=== PATIENT | male | born 1985 | race Hispanic/Latino ===

== ENCOUNTER 2021-04-06 08:00 | Emergency (ER) | payer OTHER ==
[2021-04-06 08:45] LABS: Urine Blood Trace-lysed (Negative); Urine Glucose Negative (Negative); Urine Protein Negative (Negative)
[2021-04-06 08:48] LABS: Absolute Lymphocytes (CBC) 2.4 K/uL (0.7-4.9); Hematocrit 45.2 % (39.6-49.0); Lymphocytes % 30.9 % (15.3-44.8); MPV 8.5 fL (7.6-11.3); RBC Red Blood Cell Count 5.12 M/uL (4.33-5.43)
[2021-04-06 08:49] LABS: Protime INR 1.08
[2021-04-06 09:14] LABS: ALT/SGPT 31 U/L (12-78); AST/SGOT 15 U/L (15-37); Albumin 3.7 g/dL (3.4-5.0); Alkaline Phosphatase 54 U/L (45-117); BUN Blood Urea Nitrogen 18 mg/dL (7-18); Bicarbonate 28 mmol/L (21-32); Bilirubin Direct < 0.1 mg/dL (0-0.2); Bilirubin Total 0.3 mg/dL (0.2-1.0); Glucose Level 127 mg/dL (74-106); Magnesium 1.9 mg/dL (1.8-2.4); NT PRO-BNP 17 pg/mL (<125); Potassium 3.6 mmol/L (3.5-5.1); Protein, Total 8.1 g/dL (6.4-8.2); Sodium Level 134 mmol/L (136-145); Thyroid Stimulating Hormone 0.836 uIU/mL (0.360-3.740)
[2021-04-06 09:26] LABS: Barbiturates NEGATIVE (NEGATIVE); Benzodiazepines NEGATIVE (NEGATIVE); Cocaine NEGATIVE (NEGATIVE); METHAMPHETAM NEGATIVE (NEGATIVE); Methadone NEGATIVE (NEGATIVE); Opiates NEGATIVE (NEGATIVE); Phencyclidine NEGATIVE (NEGATIVE); THC Cannibis POSITIVE (NEGATIVE)
--- NOTE | 2021-04-06 09:45 | RAD REPORT ---
EXAM DESCRIPTION: RAD - Chest Single View - 04/06/2021 9:30 am CLINICAL HISTORY: PALPITATIONS COMPARISON: No comparisons FINDINGS: Lines: None. Lungs: No evidence of edema or pneumonia. Pleural: No significant pleural effusions or pneumothorax. Cardiac: The heart size is within normal limits. Bones: No acute fractures. Other: IMPRESSION: No acute cardiopulmonary disease.
[2021-04-06] MEDS ORDERED: METOPROLOL TARTRATE 5 MG/5 ML INJ IV ONE (09:48)
--- NOTE | 2021-04-06 10:34 | ER ---
Nurse's Notes [facility] Name: Denny Heller Age: 36 yrs Sex: Male : 1985 Arrival Date: 04/06/2021 Time: 08:03 Bed 12 Private MD: Diagnosis: Palpitations;Dizziness and giddiness Presentation: 04/06 08:12 Chief complaint: Patient states: "around 0530 this morning I started having a fast jd3 heart rate.". Coronavirus screen: At this time, the client does not indicate any symptoms associated with coronavirus-19. Ebola Screen: Patient negative for fever greater than or equal to 101.5 degrees Fahrenheit, and additional compatible Ebola Virus Disease symptoms. Initial Sepsis Screen: Does the patient meet any 2 criteria? No. Patient's initial sepsis screen is negative. Does the patient have a suspected source of infection? No. Patient's initial sepsis screen is negative. Risk Assessment: Do you want to hurt yourself or someone else? Patient reports no desire to harm self or others. Onset of symptoms was April 06, 2021. 08:12 Method Of Arrival: Ambulatory jd3 08:12 Acuity: VIRGEN 3 jd3 Triage Assessment: 09:44 General: Appears in no apparent distress. comfortable, obese, well groomed, well jh5 developed, well nourished, Behavior is calm, cooperative, appropriate for age. Pain: Denies pain. Cardiovascular: Rhythm is irregular. Historical: - Allergies: 08:13 No Known Allergies; jd3 - Home Meds: 08:13 None [Active]; jd3 - PMHx: 08:13 None; jd3 - PSHx: 08:13 None; jd3 - Immunization history:: Adult Immunizations up to date, Client reports receiving the 2nd dose of the Covid vaccine, Flu vaccine is not up to date. - Social history:: Smoking status: Patient denies any tobacco usage or history of. Screenin:09 Abuse screen: Denies threats or abuse. Denies injuries from another. Nutritional 5 screening: No deficits noted. Tuberculosis screening: No symptoms or risk factors identified. Fall Risk Secondary diagnosis (15 points) dizziness. Assessment: 10:11 Pain: Pain does not radiate. Pain began gradually. 5 Vital Signs: 08:14 BP 150 / 100; Pulse 114; Resp 18 S; Temp 98.3(TE); Pulse Ox 100% on R/A; Weight 115.67 jd3 kg (R); Height 5 ft. 8 in. (172.72 cm) (R); Pain 0/10; 09:43 BP 144 / 75; Pulse 93; Resp 18; Pulse Ox 100% ; jh5 09:58 BP 124 / 73; Pulse 84; Resp 18; Pulse Ox 100% ; jh5 10:07 BP 122 / 65; Pulse 78; jh5 08:14 Body Mass Index 38.77 (115.67 kg, 172.72 cm) jd3 ED Course: 08:03 Patient arrived in ED. ds1 08:13 Triage completed. jd3 08:14 Arm band placed on. EKG completed in triage. Results shown to MD. jd3 08:23 Jonathan Valdez MD is Attending Physician. kdr 08:45 Sujey Chi RN is Primary Nurse. iw 08:47 Patient has correct armband on for positive identification. Bed in low position. Call [facility] light in reach. Side rails up X 1. Adult w/ patient. Warm blanket given. hall monitor on. Pulse ox on. NIBP on. 08:47 Initial lab(s) drawn, by sd, sent to lab. Urine collected: clean catch specimen, clear, [facility] EKG done, by ED staff, reviewed by Jonathan Valdez MD. Inserted saline lock: 18 gauge in right antecubital area, using aseptic technique. Blood collected. 08:48 TSH Sent. mh5 08:48 UDS Sent. mh5 08:48 ETOH Level Sent. mh5 08:48 Basic Metabolic Panel Sent. mh5 08:48 CBC with Diff Sent. mh5 08:48 LFT's Sent. mh5 08:48 Magnesium Sent. mh5 08:48 NT PRO-BNP Sent. mh5 08:48 PT-INR Sent. mh5 08:48 Troponin HS Sent. 5 09:09 No provider procedures requiring assistance completed. jh5 09:30 XRAY Chest (1 view) In Process Unspecified. EDMS 09:44 Patient maintains SpO2 saturation greater than 95% on room air. 5 Administered Medications: 09:51 Drug: Lopressor (metoprolol) 5 mg {Note: 2.5mg given as first dose per José Miguel.} Route: jh5 IVP; Site: right antecubital; 09:59 Drug: Lopressor (metoprolol) 5 mg {Note: 2.5 given IVP .} Route: IVP; Site: right [facility] antecubital; Outcome: 10:34 Discharge ordered by . kdr 11:17 Patient left the ED. 5 Signatures: Dispatcher [employer] EDMS Jonathan Valdez MD MD kdr Sanford, Demi ds1 Sujey Chi RN RN iw Martinez, Maria Jasvir Carney RN RN jd3 Rees, Jessica, RN RN jh5 Corrections: (The following items were deleted from the chart) 08:14 08:13 PSHx: None; gilbert hunt
--- NOTE | 2021-04-06 10:35 | EDPHYS ---
Physician Documentation [facility] Name: Denny Heller Age: 36 yrs Sex: Male : 1985 Arrival Date: 04/06/2021 Time: 08:03 Bed 12 Private MD: ED Physician Jonathan Valdez HPI: 04/06 13:09 This 36 yrs old Male presents to ER via Ambulatory with complaints of kdr Irregular Pulse, Dizziness. 13:09 The patient presents with dizziness, generalized weakness, lightheadedness. Onset: The kdr symptoms/episode began/occurred suddenly, just prior to arrival, this morning, at 05:30. Context: occurred at home, occurred while the patient was asleep, at rest, just prior to the episode the patient experienced no apparent symptoms. Modifying factors: The symptoms are alleviated by nothing, the symptoms are aggravated by standing up. Associated signs and symptoms: Pertinent positives: palpitations. Severity of symptoms: At their worst the symptoms were mild. Patient's baseline: Neuro: alert and fully oriented, Motor: no deficits, Ambulation: walks without assistance, Speech: normal. The patient has not experienced similar symptoms in the past. The patient has not recently seen a physician. States over the past several years has had intermittent palpitations and lightheadedness. He has had several evaluations for this without a specific etiology being found. He feels lightheaded and dizzy and palpitations when these episodes occur. They seem to be self-limiting but perhaps somewhat more frequent in the last few months and weeks. He is otherwise appears to be healthy and is nontoxic during his stay in the ED. Historical: - Allergies: 08:13 No Known Allergies; jd3 - Home Meds: 08:13 None [Active]; jd3 - PMHx: 08:13 None; jd3 - PSHx: 08:13 None; jd3 - Immunization history:: Adult Immunizations up to date, Client reports receiving the 2nd dose of the Covid vaccine, Flu vaccine is not up to date. - Social history:: Smoking status: Patient denies any tobacco usage or history of. ROS: 13:09 Constitutional: Negative for fever, chills, and weight loss, Eyes: Negative for injury, kdr pain, redness, and discharge, ENT: Negative for injury, pain, and discharge, Neck: Negative for injury, pain, and swelling, Respiratory: Negative for shortness of breath, cough, wheezing, and pleuritic chest pain, Abdomen/GI: Negative for abdominal pain, nausea, vomiting, diarrhea, and constipation, Back: Negative for injury and pain, : Negative for injury, bleeding, discharge, and swelling, MS/Extremity: Negative for injury and deformity, Skin: Negative for injury, rash, and discoloration, Psych: Negative for depression, anxiety, suicide ideation, homicidal ideation, and hallucinations, Allergy/Immunology: Negative for hives, rash, and allergies, Endocrine: Negative for neck swelling, polydipsia, polyuria, polyphagia, and marked weight changes, Hematologic/Lymphatic: Negative for swollen nodes, abnormal bleeding, and unusual bruising. 13:09 Cardiovascular: Positive for palpitations, Negative for chest pain, edema, orthopnea, paroxysmal nocturnal dyspnea. 13:09 Neuro: Positive for dizziness, weakness, Negative for altered mental status, loss of consciousness, speech changes, syncope, near syncope, visual changes. Exam: 08:56 ECG was reviewed by the Attending Physician. kdr 13:09 Constitutional: This is a well developed, well nourished patient who is awake, alert, kdr and in no acute distress. Head/Face: Normocephalic, atraumatic. Eyes: Pupils equal round and reactive to light, extra-ocular motions intact. Lids and lashes normal. Conjunctiva and sclera are non-icteric and not injected. Cornea within normal limits. Periorbital areas with no swelling, redness, or edema. Neck: Trachea midline, no thyromegaly or masses palpated, and no cervical lymphadenopathy. Supple, full range of motion without nuchal rigidity, or vertebral point tenderness. No Meningismus. Chest/axilla: Normal chest wall appearance and motion. Nontender with no deformity. No lesions are appreciated. Cardiovascular: Regular rate and rhythm with a normal S1 and S2. No gallops, murmurs, or rubs. Normal PMI, no JVD. No pulse deficits. Respiratory: Lungs have equal breath sounds bilaterally, clear to auscultation and percussion. No rales, rhonchi or wheezes noted. No increased work of breathing, no retractions or nasal flaring. Abdomen/GI: Soft, non-tender, with normal bowel sounds. No distension or tympany. No guarding or rebound. No evidence of tenderness throughout. Back: No spinal tenderness. No costovertebral tenderness. Full range of motion. Skin: Warm, dry with normal turgor. Normal color with no rashes, no lesions, and no evidence of cellulitis. MS/ Extremity: Pulses equal, no cyanosis. Neurovascular intact. Full, normal range of motion. Neuro: Awake and alert, GCS 15, oriented to person, place, time, and situation. Cranial nerves II-XII grossly intact. Motor strength 5/5 in all extremities. Sensory grossly intact. Cerebellar exam normal. Normal gait. Psych: Awake, alert, with orientation to person, place and time. Behavior, mood, and affect are within normal limits. Vital Signs: 08:14 BP 150 / 100; Pulse 114; Resp 18 S; Temp 98.3(TE); Pulse Ox 100% on R/A; Weight 115.67 jd3 kg (R); Height 5 ft. 8 in. (172.72 cm) (R); Pain 0/10; 09:43 BP 144 / 75; Pulse 93; Resp 18; Pulse Ox 100% ; jh5 09:58 BP 124 / 73; Pulse 84; Resp 18; Pulse Ox 100% ; jh5 10:07 BP 122 / 65; Pulse 78; jh5 08:14 Body Mass Index 38.77 (115.67 kg, 172.72 cm) jd3 MDM: 10:34 Patient medically screened. kdr 13:09 Data reviewed: vital signs, nurses notes, lab test result(s), EKG, radiologic studies. kdr Counseling: I had a detailed discussion with the patient and/or guardian regarding: the historical points, exam findings, and any diagnostic results supporting the discharge/admit diagnosis, lab results, radiology results, the need for outpatient follow up. 04/06 08:24 Order name: Basic Metabolic Panel; Complete Time: : kdr 04/06 08:24 Order name: CBC with Diff; Complete Time: : kdr 04/06 08:24 Order name: LFT's; Complete Time: : kdr 04/06 08:24 Order name: Magnesium; Complete Time: : kdr 04/06 08:24 Order name: NT PRO-BNP; Complete Time: : kdr 04/06 08:24 Order name: PT-INR; Complete Time: : kdr 04/06 08:24 Order name: Troponin HS; Complete Time: 09:37 kdr 04/06 08:24 Order name: XRAY Chest (1 view); Complete Time: 10:15 kdr 04/06 08:24 Order name: EKG; Complete Time: 08:24 kdr 04/06 08:25 Order name: ETOH Level; Complete Time: 09:37 kdr 04/06 08:25 Order name: UDS; Complete Time: 09:37 kdr 04/06 08:25 Order name: TSH; Complete Time: 09:37 kdr 04/06 08:45 Order name: Urine Dipstick-Ancillary; Complete Time: 09:09 EDMS 04/06 08:24 Order name: Cardiac monitoring; Complete Time: 08:48 kdr 04/06 08:24 Order name: EKG - Nurse/Tech; Complete Time: 08:48 kdr 04/06 08:24 Order name: IV Saline Lock; Complete Time: 08:48 kdr 04/06 08:24 Order name: Labs collected and sent; Complete Time: 08:48 kdr 04/06 08:24 Order name: O2 Per Protocol; Complete Time: 08:49 kdr 04/06 08:24 Order name: O2 Sat Monitoring; Complete Time: 08:49 kdr EC:56 Rate is 106 beats/min. Rhythm is regular, Sinus tachycardia with No ectopy. QRS [place] is kdr Normal. CO interval is normal. QRS interval is normal. QT interval is normal. Clinical impression: NSR w/ Non-specific ST/T Changes and Sinus tachycardia. Administered Medications: 09:51 Drug: Lopressor (metoprolol) 5 mg {Note: 2.5mg given as first dose per Ritt[place].} Route: jh5 IVP; Site: right antecubital; 09:59 Drug: Lopressor (metoprolol) 5 mg {Note: 2.5 given IVP .} Route: IVP; Site: right 5 antecubital; Disposition Summary: 04/06/21 10:34 Discharge Ordered Location: Home kdr Problem: new kdr Symptoms: have improved kdr Condition: Stable kdr Diagnosis - Palpitations kdr - Dizziness and giddiness kdr Followup: kdr - With: Private Physician - When: 2 - 3 days - Reason: If symptoms return, Further diagnostic work-up, Recheck today's complaints, Continuance of care, Re-evaluation by your physician Discharge Instructions: - Discharge Summary Sheet kdr - Palpitations kdr - Dizziness, [id number] kdr Forms: - Medication Reconciliation Form kdr - Thank You Letter kdr - Work release form jh5 Signatures: Dispatcher [employer] Jonahtan Kent MD MD kdr Davies, Jonathon, RN RN jd3 Yolanda Feliciano RN RN jh5 Corrections: (The following items were deleted from the chart) 08:14 08:13 PSHx: None; gilbert hunt
[2021-04-06 22:15] VITALS: TEMP 98.3; O2SAT 100
[2021-04-06 22:19] VITALS: BP 122/65
--- NOTE | 2021-04-07 08:26 | EKG ---
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
== END 2021-04-06 11:17 | disposition home or self-care (01) ==
LOC: ER 08:00
DX: R00.2 Palpitations (principal)
CPT/HCPCS: 36415; 71045; 80048; 80076; 80307; 80320; 81003; 83735; 83880; 84443; 84484; 85025; 85610; 93005; 93270; 96374; 99285